=== PATIENT | male | born 1985 | race American Indian/Alaskan Native ===

== ENCOUNTER 2018-06-30 11:59 | Emergency (ER) | payer OTHER ==
[2018-06-30 11:59] VITALS: BMI 25.7
[2018-06-30 12:04] VITALS: BP 115/76; PULSE 67; RESP 18; TEMP 98.4; O2SAT 98
[2018-06-30] MEDS ORDERED: PROPARACAINE/FLUORESCEIN SOD 100 DROP/5 ML BOTTLE OU STA (12:49)
--- NOTE | 2018-06-30 12:55 | ED PDOC ---
HPI: Eye Injury/Pain Time Seen by Provider: 06/30/18 12:16 Chief Complaint (Nursing): Eye Problem Chief Complaint (Provider): Left Eye Redness History Per: Patient Additional Complaint(s): 32 year old male presents to the ED for evaluation of left eye redness. Patient reports that last night while helping a friend move a couch, the corner of the couch hit him in the left eye. He reports using Visine drops after the incident with no relief, and woke up this morning with increased redness. Otherwise, denies foreign body sensation or vision changes. Patient does not wear contacts or glasses. PMD: none Past Medical History Reviewed: Historical Data, Nursing Documentation, Vital Signs Vital Signs: Last Vital Signs Temp 98.4 F 06/30/18 12:10 Pulse 67 06/30/18 12:10 Resp 18 06/30/18 12:10 BP 115/76 06/30/18 12:03 Pulse Ox 98 06/30/18 12:10 - Medical History PMH: No Chronic Diseases - Surgical History Surgical History: No Surg Hx - Family History Family History: States: No Known Family Hx - Living Arrangements Living Arrangements: With Family - Social History Current smoker - smoking cessation education provided: No Alcohol: None Drugs: Denies - Home Medications Home Medications: Ambulatory Orders Medication Instructions Recorded Cephalexin [Keflex] 500 mg PO Q6 #28 capsule 06/28/17 Tobramycin [Tobrex] 5 ml TOP QID #1 bottle 06/30/18 - Allergies Allergies/Adverse Reactions: Allergies Allergy/AdvReac Type Severity Reaction Status Date / Time No Known Allergies Allergy Verified 06/28/17 16:31 Review of Systems ROS Statement: Except As Marked, All Systems Reviewed And Found Negative Eyes: Positive for: Redness (to left eye). Negative for: Vision Change Physical Exam - Reviewed Nursing Documentation Reviewed: Yes Vital Signs Reviewed: Yes - Physical Exam Appears: Positive for: Well, Non-toxic, No Acute Distress Skin: Positive for: Normal Color. Negative for: Rash Eye Exam: Positive for: EOMI, PERRL, Other (subconjunctival hemorrhage to left eye with no gross foreign body noted). Negative for: Nystagmus, Periorbital swelling, Periorbital tenderness Cardiovascular/Chest: Positive for: Regular Rate, Rhythm Respiratory: Positive for: Normal Breath Sounds Extremity: Positive for: Normal ROM Neurologic/Psych: Positive for: Alert, Oriented (x3) - ECG O2 Sat by Pulse Oximetry: 98 (RA) Pulse Ox Interpretation: Normal Medical Decision Making Medical Decision Making: Time: 1248 Initial Impression: 32 year old male with left eye pain Initial Plan: 2 drops flucaine applied to left eye, examination with ultraviolet light demonstrates uptake at 9:00 consistent with corneal abrasion. No foreign body is noted to cornea or upon lid eversion. Procedure tolerated well by patient with no complications. Advised NSAIDs for pain, tobramycin drops prescription provided. 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 Scribe Attestation: Documented by Thi Ambriz, acting as a scribe for Edilia Gray PA-C Provider Scribe Attestation: All medical record entries made by the Scribe were at my direction and personally dictated by me. I have reviewed the chart and agree that the record accurately reflects my personal performance of the history, physical exam, medical decision making, and the department course for this patient. I have also personally directed, reviewed, and agree with the discharge instructions and disposition. Disposition - Clinical Impression Clinical Impression: Subconjunctival hemorrhage of left eye, Cornea abrasion - Patient ED Disposition Is Patient to be Admitted: No Counseled Patient/Family Regarding: Studies Performed, Diagnosis, Need For Followup, Rx Given - Disposition Referrals: Terrell Cr MD [Staff Provider] - Disposition: Routine/Home Disposition Time: 13:44 Condition: STABLE Additional Instructions: Apply drops as directed. Over the counter tylenol or advil as needed for pain. Follow up with eye doctor. Prescriptions: Tobramycin [Tobrex] 5 ml TOP QID #1 bottle Instructions: Corneal Abrasion (DC), Subconjunctival Hemorrhage Forms: [employer] (Togolese)
== END 2018-06-30 13:53 | disposition home or self-care (01) ==
LOC: H.ER 11:59
DX: H11.002 Unspecified pterygium of left eye (principal)